=== PATIENT | male | born 1990 | race African-American/Black ===

== ENCOUNTER 2020-02-05 14:44 | Emergency (ER) | payer OTHER ==
[~2020-02-05] VITALS: Ht 177.8 cm; Wt 125.0 kg
[2020-02-05] MEDS ORDERED: SODIUM CHLORIDE 0.9% 1,000 ML IV ONE (17:47)
[2020-02-05] MEDS ORDERED: ACETAMINOPHEN 325MG TABLET PO ONE (18:00)
[2020-02-05 19:32] LABS: BASOPHILS % 0.8 % (0.0-2.0); EOSINOPHILS % 3.6 % (0.0-5.0); HEMOGLOBIN. 16.4 g/dL (14.0-18.0); LYMPHOCYTES % 23.5 % (20.0-50.0); MEAN CORPUSCULAR HEMOGLOBIN 28.4 pg (28.0-32.0); MEAN CORPUSCULAR VOLUME 86.6 fL (80.0-94.0); MEAN PLATELET VOLUME 7.9 fl (7.4-10.4); MONOCYTES % 6.6 % (2.0-8.0); NEUTROPHILS % 65.5 % (40.0-76.0); PLATELET 272 x1000/uL (130-400); RED BLOOD CELL COUNT 5.77 mill/uL (4.7-6.1); RED CELL DISTRIBUTION WIDTH 12.9 % (11.6-14.6)
[2020-02-05 19:36] LABS: CHLORIDE 103 mEq/L (98-107)
[2020-02-05] MEDS ORDERED: PREDNISONE 20MG TABLET PO ONE (20:00)
[2020-02-05 21:22] VITALS: BP 114/74
== END 2020-02-05 21:25 | disposition home or self-care (01) ==
LOC: ER 14:44
DX: J45.909 Unspecified asthma, uncomplicated (principal); Z20.828 Contact with and (suspected) exposure to other viral communicable diseases; R11.2 Nausea with vomiting, unspecified
CPT/HCPCS: 36415; 71045; 80053; 84484; 85025; 87426; 93005; 96360; 99285; J7030; J7512